=== PATIENT | male | born 1975 | race Caucasian/White ===

== ENCOUNTER 2024-04-19 06:42 | Observation (INO) | payer OTHER ==
[2024-04-19] VITALS (16 sets, daily range): BP systolic 141–173; BP diastolic 70–112; PULSE 76–96; TEMP 97.8–98.6
[~2024-04-19] VITALS: Ht 180.3 cm; Wt 117.3 kg
[2024-04-19 08:00] LABS: BASO # 0.1 K/mm3 (0.0-0.2); BASO % 1.2 % (0.0-2.0); EOS # 0.1 K/mm3 (0.0-0.7); EOS % 1.1 % (0.0-4.0); GRAN # 6.8 K/mm3 (1.4-6.5); GRAN % 70.7 % (42.2-75.2); HEMATOCRIT 45.7 % (42.0-52.0); HEMOGLOBIN 16.4 g/dl (13.5-18.0); LYMPH # 1.4 K/mm3 (1.2-3.4); LYMPH % 14.8 % (20.0-51.0); MEAN CELL VOLUME 93 fl (80.0-100.0); MEAN CORPUSCULAR HEMOGLOBIN 33 pg (27-31); MEAN CORPUSCULAR HGB CONC 36 g/dl (33.0-37.0); MEAN PLATELET VOLUME 10.2 fl (7.4-10.4); MONO # 1.1 K/mm3 (0.1-0.6); MONO % 11.7 % (1.7-9.3); PLATELET COUNT 232 K/mm3 (130-400); RED BLOOD COUNT 4.93 M/mm3 (4.20-5.60); REDCELL DISTRIBUTION WIDTH-CV 11.3 % (11.5-14.5)
[2024-04-19] MEDS ORDERED: Pantoprazole 40 MG in NS 10 ML IV ONE (08:00)
[2024-04-19] MEDS ORDERED: NS 1,000 ML IV ONE (08:00)
[2024-04-19 08:11] LABS: ALBUMIN 4.3 g/dL (3.5-5.0); BILIRUBIN,TOTAL 0.9 mg/dL (0.2-1.2); CALCIUM 9.7 mg/dL (8.4-10.2); CREATININE, serum 0.91 mg/dL (0.72-1.25); POTASSIUM 3.8 mEq/L (3.5-4.5); TOTAL PROTEIN 7.8 g/dl (6.2-8.1)
[2024-04-19] MEDS ORDERED: Thiamine 100 MG TAB PO SCH (09:00)
[2024-04-19] MEDS ORDERED: ADVIL200 MG PO (10:31)
[2024-04-19] MEDS ORDERED: REVIA 50MG TABL50 MG PO (10:31)
[2024-04-19] MEDS ORDERED: TOPROL XL100 MG PO (10:32)
[2024-04-19] MEDS ORDERED: PAXIL 10MG10 MG PO (10:32)
--- NOTE | 2024-04-19 11:04 | NUR ---
Pt arrived to medical floor from ED. Report received from MARY Blum in ED. Pt is A&O x4. VSS. INT to RAC patent with no swelling, redness, or drainage. Pt denies pain at this time rating 0/10. Pt ambulates independently with no complications. Oriented pt to room, call light, and bathroom. Pt mom at bedside at this time. Home medications, allergies, and pharmacy reviewed. Pt has no request at this time. Call light within reach.
[2024-04-19] MEDS ORDERED: Lidocaine 4% Topical Patch TP SCH (11:53)
[2024-04-19] MEDS ORDERED: LORazepam 2 MG/ML 1 ML VIAL IV PRN (12:00)
[2024-04-19] MEDS ORDERED: NS 1,000 ML IV SCH (12:00)
[2024-04-19] MEDS ORDERED: hydrALAZINE 20 MG/ML 1 ML VIAL IV PRN (12:00)
[2024-04-19] MEDS ORDERED: Ondansetron 4 MG/2 ML VIAL IV PRN (12:00)
--- NOTE | 2024-04-19 13:37 | NUR ---
SW met with patient to complete initial assessment for discharge planning. Patient reports to live in [place] alone with his dog. Patient lists his mother Yamile ([phone]) as emergency contact. Patient denies having a DPOA and declines to complete one at this time. Patient does not have a PCP, and is open to having a list of PCP to establish with one. Patient uses [facility] pharmacy and denies having any DME. Patient plans to return home at discharge. Discharge plan: Home
[2024-04-19] MEDS ORDERED: Lidocaine PF 2% (20 MG/ML) 5 ML VIAL ONE (14:16)
--- NOTE | 2024-04-19 14:23 | NUR ---
Pt left medical floor to endoscopy with MARY Del Castillo by bed.
--- NOTE | 2024-04-19 15:17 | NUR ---
Pt brought back to medical floor from Endoscopy. Report received from MARY Del Castillo. Pt awake in bed with no complaints. Call light within reach and VSS.
[2024-04-19] MEDS ORDERED: KAPSPARGO SPRI100 MG PO (16:10)
[2024-04-19] MEDS ORDERED: Multivitamin TAB PO SCH (17:00)
--- NOTE | 2024-04-19 19:09 | NUR ---
TORB order to discontinue fluids from GRADUATE RESEARCH ASSISTANT Radha. Order read back and confirmed. Pt tolerating PO fluids and food at this time. Call light within reach.
[2024-04-19] MEDS ORDERED: Pantoprazole 40 MG in NS 10 ML IV SCH (21:00)
--- NOTE | 2024-04-19 21:30 | NUR ---
Patient resting in bed. Denies any pain or needs. Snack provided. Assessment complete. IV in right AC flushes easily without complications. Call light and personal items in reach. Bed in low position.
[2024-04-20] VITALS (7 sets, daily range): BP systolic 150–166; BP diastolic 89–110; PULSE 65–73; TEMP 97.9–98.4
[2024-04-20 06:08] LABS: BASO # 0.1 K/mm3 (0.0-0.2); BASO % 1.3 % (0.0-2.0); EOS # 0.3 K/mm3 (0.0-0.7); EOS % 4.3 % (0.0-4.0); GRAN # 3.2 K/mm3 (1.4-6.5); GRAN % 50.7 % (42.2-75.2); LYMPH # 1.8 K/mm3 (1.2-3.4); LYMPH % 28.4 % (20.0-51.0); MEAN CELL VOLUME 96 fl (80.0-100.0); MEAN CORPUSCULAR HGB CONC 35 g/dl (33.0-37.0); MEAN PLATELET VOLUME 10.3 fl (7.4-10.4); PLATELET COUNT 181 K/mm3 (130-400); RED BLOOD COUNT 3.76 M/mm3 (4.20-5.60); REDCELL DISTRIBUTION WIDTH-CV 11.5 % (11.5-14.5)
[2024-04-20 06:16] LABS: HEMATOCRIT 35.9 % (42.0-52.0); HEMOGLOBIN 12.7 g/dl (13.5-18.0); MEAN CORPUSCULAR HEMOGLOBIN 34 pg (27-31)
[2024-04-20 06:27] LABS: ALBUMIN 3.5 g/dL (3.5-5.0); BILIRUBIN,TOTAL 0.7 mg/dL (0.2-1.2); CALCIUM 9.3 mg/dL (8.4-10.2); CREATININE, serum 0.91 mg/dL (0.72-1.25); TOTAL PROTEIN 6.1 g/dl (6.2-8.1)
--- NOTE | 2024-04-20 08:15 | NUR ---
PA NOTIFIED OF RN [facility] CONTINUED ELEVATED BLOOD PRESSURE. MD AWARE AND WILL BE INITIATING AN ANTIHYPERTENSIVE TO BEGIN NOW AND TO SEND A SCRIPT HOME. PATIENT AWARE.
[2024-04-20] MEDS ORDERED: THIAMINE 1100 MG/TAB PO (08:26)
[2024-04-20] MEDS ORDERED: FOLIC ACID 11 MG/TA1 PO (08:26)
[2024-04-20] MEDS ORDERED: PRINIVIL10 MG PO (08:27)
[2024-04-20] MEDS ORDERED: DUO-KAPS1 CAP PO (08:27)
[2024-04-20] MEDS ORDERED: PROTONIX 40MG T40 MG PO (08:28)
[2024-04-20] MEDS ORDERED: Lisinopril 10 MG TAB PO SCH (09:00)
[2024-04-20] MEDS ORDERED: Folic Acid 1 MG TAB PO SCH (09:00)
--- NOTE | 2024-04-20 09:15 | NUR ---
PATIENT GIVEN DISCHARGE INSTRUCTIONS AND EDCUATION. IV REMOVED, PATIENTS POST OP INSTRUCTIONS REVIEWED AND SGINED, COPY WITH PATIENT.
--- NOTE | 2024-04-20 09:44 | NUR ---
PATIENT TAKEN TO ER ENTRANCE WHERE HE LEFT IN STABKLE CONDITION.
== END 2024-04-20 09:45 | disposition home or self-care (01) ==
LOC: COL.ER 06:42 → MEDICAL 09:29
PROVIDERS: Personal Emergency Response Attendant; Physician Assistant; ADMIT Internal Medicine
DX: K29.80 Duodenitis without bleeding (principal); K22.11 Ulcer of esophagus with bleeding; K29.31 Chronic superficial gastritis with bleeding; K92.0 Hematemesis; I16.0 Hypertensive urgency; M54.50 Low back pain, unspecified; R79.89 Other specified abnormal findings of blood chemistry; F10.10 Alcohol abuse, uncomplicated; Y90.9 Presence of alcohol in blood, level not specified; Z79.899 Other long term (current) drug therapy; Z79.1 Long term (current) use of non-steroidal anti-inflammatories (NSAID); K92.1 Melena
CPT/HCPCS: G0378; J0360; J1920; J2470; J2704; J7030